=== PATIENT | female | born 2000 | race Caucasian/White ===

== ENCOUNTER 2024-03-14 05:43 | Day surgery (SDC) | payer BC ==
[2024-03-13 16:23] VITALS: BMI 26.2
[2024-03-13 17:00] LABS: Hematocrit 33.1 % (34.9-44.5); Hemoglobin 10.8 g/dL (12.0-15.5); Mean Corpuscular HGB CONC 32.6 g/dL (32.0-36.0); Mean Corpuscular Hemoglobin 25.2 pg (27.0-33.0); Mean Corpuscular Volume 77.3 fL (81.6-98.3); Mean Platelet Volume 11.1 fL (7.4-10.4); Platelet Count 354 10x3/uL (150-450); RBC Distribution Width 14.7 % (11.5-14.5); Red Blood Cell (RBC) Count 4.28 10x6/uL (3.90-5.03); White Blood Cell (WBC) Count 11.6 10x3/uL (3.5-10.5)
[2024-03-14] MEDS ORDERED: Misoprostol 200 MCG TAB ONE (06:16)
[2024-03-14] MEDS ORDERED: Tranexamic Acid 1,000 MG/10 ML VIAL ONE (06:16)
[2024-03-14] MEDS ORDERED: Methylergonovine 0.2 MG/ML VIAL ONE (06:16)
[2024-03-14] MEDS ORDERED: Sevoflurane 250 ML INH ANEST BOTTLE ONE (06:52)
[2024-03-14] MEDS ORDERED: Ondansetron PF 4 MG/2 ML Vial ONE (06:55)
[2024-03-14] MEDS ORDERED: Dexamethasone 20 MG/5 ML VIAL ONE (06:55)
[2024-03-14] MEDS ORDERED: fentaNYL 50 mcg/mL 1 mL Vial ONE (06:55)
[2024-03-14] MEDS ORDERED: PROPOFOL 20 ML ONE (06:55)
[2024-03-14] MEDS ORDERED: Lidocaine 1% PF 5 ML VIAL ONE (06:55)
[2024-03-14] MEDS ORDERED: CEFAZOLIN 2 GM VIAL ONE (07:07)
== END 2024-03-14 09:40 | disposition home or self-care (01) ==
LOC: CSHSDC 05:43
PROVIDERS: ATTEND Obstetrics & Gynecology
PROC: 10D17ZZ Extraction of Products of Conception, Retained, Via Natural or Artificial Opening (ICD-10-PCS; principal; 2024-03-14)
DX: O02.1 Missed abortion (principal); J45.909 Unspecified asthma, uncomplicated; K21.9 Gastro-esophageal reflux disease without esophagitis; Z79.899 Other long term (current) drug therapy
CPT/HCPCS: 85027; 86850; 86900; 86901; 88305; J1100; J2210; J2405; J2704; J3010